=== PATIENT | male | born 1960 | race Caucasian/White ===

== ENCOUNTER 2022-08-15 22:27 | Inpatient (IN) | payer MEDICAID ==
[~2022-08-15] VITALS: Ht 172.7 cm; Wt 70.9 kg
[2022-08-16] MEDS ORDERED: NITROGLYCERIN 0.4MG TABLET SL SL PRN
[2022-08-16] MEDS ORDERED: ASPIRIN 81MG TABLET PO ONE
[2022-08-16 01:33] LABS: BASOPHILS % 0.6 % (0.0-2.0); EOSINOPHILS % 1.3 % (0.0-5.0); HEMATOCRIT. 38.5 % (42.0-52.0); HEMOGLOBIN. 13.2 g/dL (14.0-18.0); LYMPHOCYTES % 26.8 % (20.0-50.0); MEAN CORPUSCULAR HEMOGLOBIN 31.5 pg (28.0-32.0); MEAN CORPUSCULAR VOLUME 91.9 fL (80.0-94.0); MONOCYTES % 10.4 % (2.0-8.0); NEUTROPHILS % 60.9 % (40.0-76.0); PLATELET 237 x1000/uL (130-400); RED BLOOD CELL COUNT 4.19 mill/uL (4.7-6.1); RED CELL DISTRIBUTION WIDTH 13.5 % (11.6-14.6)
[2022-08-16 04:26] LABS: CHLORIDE 102 mEq/L (98-107)
[2022-08-16] MEDS ORDERED: ACETAMINOPHEN 325MG TABLET PO PRN (20:45)
[2022-08-16] MEDS ORDERED: ONDANSETRON HCL 4MG/2ML INJ IV PRN (20:45)
[2022-08-16] MEDS ORDERED: CLONIDINE 0.1MG TABLET PO PRN (20:45)
[2022-08-16] MEDS ORDERED: MELO-106 PO (23:44)
[2022-08-16] MEDS ORDERED: ASPI-1406 PO (23:44)
[2022-08-16] MEDS ORDERED: DEXL60CA3 PO (23:44)
[2022-08-16] MEDS ORDERED: SIMV-43 PO (23:44)
[2022-08-16] MEDS ORDERED: RISP3TAB62 PO (23:44)
[2022-08-16] MEDS ORDERED: DIVA-75 PO (23:44)
[2022-08-16] MEDS ORDERED: BENZ1TAB7 MT (23:44)
[2022-08-16] MEDS ORDERED: MIDO10TA PO (23:44)
[2022-08-16] MEDS ORDERED: FINA1TAB18 PO (23:44)
[2022-08-16] MEDS ORDERED: DOCU-138 PO (23:44)
[2022-08-17 01:02] VITALS: BP 136/73
[2022-08-17 04:00] VITALS: BP 128/66
[2022-08-17 04:32] LABS: CREATINE KINASE MB FRACTION 1.7 ng/mL (0.5-3.6)
[2022-08-17 07:04] LABS: BASOPHILS % 0.8 % (0.0-2.0); EOSINOPHILS % 1.8 % (0.0-5.0); HEMATOCRIT. 41.6 % (42.0-52.0); LYMPHOCYTES % 37.4 % (20.0-50.0); MEAN CORPUSCULAR VOLUME 92.1 fL (80.0-94.0); MEAN PLATELET VOLUME 8.9 fl (7.4-10.4); PLATELET 232 x1000/uL (130-400); RED BLOOD CELL COUNT 4.52 mill/uL (4.7-6.1); RED CELL DISTRIBUTION WIDTH 13.3 % (11.6-14.6)
[2022-08-17 08:00] VITALS: BP 123/59
[2022-08-17] MEDS ORDERED: ENOXAPARIN 40MG/0.4ML SYR SUBCUT SCH (09:00)
[2022-08-17 09:07] LABS: CHLORIDE 105 mEq/L (98-107)
[2022-08-17 09:16] LABS: CREATINE KINASE 76 IU/L (39-308); CREATINE KINASE MB FRACTION 1.9 ng/mL (0.5-3.6)
[2022-08-17 12:00] VITALS: BP 103/67
[2022-08-17 16:00] VITALS: BP 113/62
[2022-08-17 17:02] VITALS: BP 113/62
[2022-08-17] MEDS ORDERED: ATORVASTATIN CALCIUM 40MG TABLET PO SCH (21:00)
== END 2022-08-17 21:50 | DRG 203 ==
LOC: ER 22:27 → 8WST 08-16 06:35
PROVIDERS: ADMIT Internal Medicine; ATTEND Internal Medicine
DX: M94.0 Chondrocostal junction syndrome [Tietze] (principal); C79.9 Secondary malignant neoplasm of unspecified site; I11.0 Hypertensive heart disease with heart failure; C34.90 Malignant neoplasm of unspecified part of unspecified bronchus or lung; I50.9 Heart failure, unspecified; Z20.822 Contact with and (suspected) exposure to COVID-19; E78.5 Hyperlipidemia, unspecified; F20.9 Schizophrenia, unspecified; N40.0 Benign prostatic hyperplasia without lower urinary tract symptoms; G40.909 Epilepsy, unspecified, not intractable, without status epilepticus; Z66 Do not resuscitate; F31.9 Bipolar disorder, unspecified; J44.9 Chronic obstructive pulmonary disease, unspecified; Z79.1 Long term (current) use of non-steroidal anti-inflammatories (NSAID); Z79.82 Long term (current) use of aspirin; Z79.899 Other long term (current) drug therapy; Z85.118 Personal history of other malignant neoplasm of bronchus and lung
CPT/HCPCS: 36415; 71045; 71250; 74176; 80048; 80053; 82550; 82553; 84484; 85025; 85379; 87426; 93005; 99285; J1650

== ENCOUNTER 2023-06-23 01:41 | Inpatient (IN) | payer SELFPAY ==
[~2023-06-23] VITALS: Ht 162.6 cm; Wt 59.0 kg
[~2023-06-23 01:41] MED LIST: ASPI-1406 PO; BENZ1TAB78 MT; DEXL60CA3 PO; DIVA-75 PO; DOCU-138 PO; FINA1TAB18 PO; MELO-106 PO; MIDO10TA PO; RISP3TAB62 PO; SIMV-43 PO
[2023-06-23] MEDS ORDERED: LORAZEPAM 2MG/ML CPJ IV STA (01:58)
[2023-06-23 03:06] LABS: CHLORIDE 105 mEq/L (98-107); INDEX HEMOLYSI 1 (1-3); INDEX ICTERIC 1 (1-4); INDEX LIPEMIC 1 (1-3); POTASSIUM 4.2 mEq/L (3.5-5.1); SODIUM 139 mEq/L (136-145)
[2023-06-23 03:12] LABS: ACETAMINOPHEN <2 ug/mL ug/mL (10-30); ALANINE AMINOTRANSFERASE 21 IU/L (13-61); ALBUMIN 3.5 g/dL (3.4-5.0); ASPARTATE AMINOTRANSFERASE 12 IU/L (15-37); BILIRUBIN TOTAL 0.3 mg/dL (0.1-1.0); CALCIUM 9.2 mg/dL (8.5-10.1); CARBON DIOXIDE 32 mEq/L (21-32); CREATININE 0.7 mg/dL (0.6-1.3); ETHANOL BLOOD < 10 mg/dL (<10); GLUCOSE 100 mg/dL (70-105); PROTEIN TOTAL 7.6 g/dL (6.0-8.3); UREA NITROGEN BLOOD 19 mg/dL (7-21)
[2023-06-23 03:30] LABS: BASOPHILS % 0.8 % (0.0-2.0); HEMATOCRIT. 42.6 % (42.0-52.0); HEMOGLOBIN. 14.2 g/dL (14.0-18.0); MEAN CORPUSCULAR HEMOGLOBIN 29.9 pg (28.0-32.0); MEAN CORPUSCULAR HGB CONC 33.3 g/dL (31.0-37.0); MEAN CORPUSCULAR VOLUME 89.9 fL (80.0-94.0); MONOCYTES % 8.2 % (2.0-8.0); RED BLOOD CELL COUNT 4.74 mill/uL (4.7-6.1); RED CELL DISTRIBUTION WIDTH 13.8 % (11.6-14.6); WHITE BLOOD COUNT 10.2 x1000/uL (4.5-11.0)
[2023-06-23 03:35] LABS: DIFFERENTIAL COMMENT 1
[2023-06-23 05:10] LABS: MEAN PLATELET VOLUME 9.1 fl (7.4-10.4); PLATELET 222 x1000/uL (130-400)
[2023-06-23] MEDS ORDERED: ACETAMINOPHEN 325MG TABLET PO PRN (09:45)
[2023-06-23] MEDS ORDERED: LORAZEPAM 2MG/ML CPJ IV PRN (09:45)
[2023-06-23] MEDS ORDERED: TAMSULOSIN HCL 0.4MG SR CAPSULE PO SCH (09:45)
[2023-06-23] MEDS ORDERED: ONDANSETRON HCL 4MG/2ML INJ IV PRN (09:45)
[2023-06-23] MEDS ORDERED: IPRATROPIUM/ALBUTEROL 0.5-3(2.5)MG/3ML NEB HHN PRN (09:45)
[2023-06-23] MEDS ORDERED: HYOS-14 PO (10:01)
[2023-06-23] MEDS ORDERED: ASCO500C18 PO (10:01)
[2023-06-23] MEDS ORDERED: MOM MT (10:01)
[2023-06-23] MEDS ORDERED: BISA10SU62 RC (10:01)
[2023-06-23] MEDS ORDERED: CLON-493 PO (10:01)
[2023-06-23] MEDS ORDERED: SUCR1TAB PO (10:01)
[2023-06-23] MEDS ORDERED: NITR0.4T49 SL (10:01)
[2023-06-23] MEDS ORDERED: TAMS-11 PO (10:01)
[2023-06-23 10:03] VITALS: BP 122/69; PULSE 75; RESP 18; TEMP 98.1
[2023-06-23 10:04] VITALS: BP 122/69; PULSE 75; RESP 18; TEMP 98.1
[2023-06-23 12:00] VITALS: BP 116/79; PULSE 78; RESP 20; TEMP 97.7
[2023-06-23 16:00] VITALS: BP 115/78; PULSE 81; RESP 20; TEMP 97.9
[2023-06-23] MEDS ORDERED: CLON0.1T PO (18:42)
[2023-06-23] MEDS ORDERED: SIMV-43 PO (18:42)
[2023-06-23] MEDS ORDERED: RISP2TAB85 PO (18:42)
[2023-06-23] MEDS ORDERED: NITR0.4T SL (18:42)
[2023-06-23] MEDS ORDERED: HYDR-4001 PO (18:42)
[2023-06-23] MEDS ORDERED: MELO-106 PO (18:43)
[2023-06-23] MEDS ORDERED: FINA5TAB11 PO (18:44)
[2023-06-23 19:06] VITALS: BP 115/78; PULSE 81; TEMP 97.9; O2SAT 97
[2023-06-23] MEDS ORDERED: ASPI-1497 PO (19:21)
[2023-06-23] MEDS ORDERED: DEXL60CA6 PO (19:23)
[2023-06-23] MEDS ORDERED: MIDO10TA PO (19:24)
[2023-06-23] MEDS ORDERED: LORA2ORA PO (19:25)
[2023-06-23] MEDS ORDERED: HYOS-28 PO (19:25)
== END 2023-06-23 20:43 | DRG 52 ==
LOC: ER 01:41 → MICUSO 06:01 → 7WST 09:10
PROVIDERS: ADMIT Internal Medicine; ATTEND Internal Medicine
DX: G93.41 Metabolic encephalopathy (principal); F20.9 Schizophrenia, unspecified; F31.9 Bipolar disorder, unspecified; I10 Essential (primary) hypertension; J44.9 Chronic obstructive pulmonary disease, unspecified; Z79.899 Other long term (current) drug therapy
CPT/HCPCS: 36415; 71045; 80053; 80307; 80320; 80329; 85025; 99285; J2060; G0480

== ENCOUNTER 2023-07-18 20:53 | Inpatient (IN) | payer SELFPAY ==
[~2023-07-18] VITALS: Ht 180.3 cm; Wt 60.0 kg
[~2023-07-18 20:53] MED LIST changes: +ASCO500C18 PO; -ASPI-1406 PO; +ASPI-1497 PO; +BISA10SU62 RC; +CLON0.1T PO; -DEXL60CA3 PO; +DEXL60CA6 PO; -DOCU-138 PO; -FINA1TAB18 PO; +FINA5TAB11 PO; +HYDR-4001 PO; +HYOS-14 PO; +LORA2ORA PO; +MOM MT; +NITR0.4T SL; +RISP2TAB85 PO; -RISP3TAB62 PO; +SUCR1TAB PO; +TAMS-11 PO
[2023-07-18 21:01] VITALS: O2SAT 98
[2023-07-18 22:03] LABS: EOSINOPHILS % 2.4 % (0.0-5.0); HEMATOCRIT. 40.1 % (42.0-52.0); HEMOGLOBIN. 13.5 g/dL (14.0-18.0); LYMPHOCYTES % 31.2 % (20.0-50.0); MEAN CORPUSCULAR HEMOGLOBIN 30.4 pg (28.0-32.0); MEAN CORPUSCULAR HGB CONC 33.8 g/dL (31.0-37.0); MEAN CORPUSCULAR VOLUME 89.9 fL (80.0-94.0); MEAN PLATELET VOLUME 8.6 fl (7.4-10.4); MONOCYTES % 8.7 % (2.0-8.0); NEUTROPHILS % 56.7 % (40.0-76.0); PLATELET 240 x1000/uL (130-400); RED BLOOD CELL COUNT 4.46 mill/uL (4.7-6.1); RED CELL DISTRIBUTION WIDTH 13.6 % (11.6-14.6); WHITE BLOOD COUNT 9.6 x1000/uL (4.5-11.0)
[2023-07-18 22:15] LABS: CHLORIDE 104 mEq/L (98-107); INDEX HEMOLYSI 1 (1-3); INDEX ICTERIC 1 (1-4); INDEX LIPEMIC 1 (1-3); POTASSIUM 3.4 mEq/L (3.5-5.1); SODIUM 140 mEq/L (136-145)
[2023-07-18 22:24] LABS: ALANINE AMINOTRANSFERASE 23 IU/L (13-61); ALBUMIN 3.4 g/dL (3.4-5.0); ASPARTATE AMINOTRANSFERASE 12 IU/L (15-37); BILIRUBIN TOTAL 0.2 mg/dL (0.1-1.0); CALCIUM 8.9 mg/dL (8.5-10.1); CARBON DIOXIDE 30 mEq/L (21-32); CREATININE 0.6 mg/dL (0.6-1.3); ETHANOL BLOOD < 10 mg/dL (<10); GLUCOSE 131 mg/dL (70-105); NT PRO B-TYPE NATRIURETIC PEP 144 pg/mL (5-125); TROPONIN I HIGH SENSITIVITY 7 ng/L (<78); UREA NITROGEN BLOOD 22 mg/dL (7-21)
[2023-07-18] MEDS ORDERED: ALBUTEROL (0.5%) 2.5MG/0.5ML NEB HHN ONE (22:30)
[2023-07-18 23:03] VITALS: PULSE 48; RESP 16
[2023-07-18] MEDS ORDERED: ASPIRIN 325MG EC TABLET PO NR (23:15)
[2023-07-19] VITALS: BP 159/82; PULSE 52; RESP 17; TEMP 98.2
[2023-07-19 00:57] LABS: TROPONIN I HIGH SENSITIVITY 7 ng/L (<78)
[2023-07-19] MEDS ORDERED: ISOSORBIDE MONONITRATE 60MG TABLET SR 24HR PO SCH (01:15)
[2023-07-19] MEDS ORDERED: POTASSIUM CHLORIDE INJ 40 MEQ in DEXT 5% WATER 250 ML IV ONE (01:15)
[2023-07-19] MEDS ORDERED: HYDROCODONE/ACETAMINOPHEN 5/325MG TABLET PO PRN (01:15)
[2023-07-19 01:33] LABS: *AMPHETAMINES SCREEN URINE NEGATIVE (NEGATIVE); *BARBITURATES SCREEN URINE NEGATIVE (NEGATIVE); *BENZODIAZEPINES SCREEN URINE NEGATIVE (NEGATIVE); *COCAINE SCREEN URINE NEGATIVE (NEGATIVE); CANNABINOID URINE SCREEN NEGATIVE (NEGATIVE); ECSTASY MDMA SCREEN URINE NEGATIVE (NEGATIVE); OPIATES URINE SCREEN NEGATIVE (NEGATIVE); PHENCYCLIDINE URINE SCREEN NEGATIVE (NEGATIVE)
[2023-07-19 02:01] VITALS: BP 159/65; PULSE 55; RESP 18; TEMP 98.2
[2023-07-19] MEDS: KCL 20MEQ/100ML X 2 FOR TOTAL KCL 40MEQ/200ML IV SCH ×2 (03:00→05:00)
[2023-07-19] MEDS ORDERED: ENOXAPARIN 40MG/0.4ML SYR SUBCUT SCH (09:00)
[2023-07-19] MEDS ORDERED: METOPROLOL TARTRATE 25MG TABLET PO SCH (09:00)
[2023-07-19] MEDS ORDERED: LEVETIRACETAM 500MG TABLET PO SCH (09:00)
[2023-07-19] MEDS ORDERED: ASPIRIN 81MG TABLET PO SCH (09:00)
[2023-07-19] MEDS ORDERED: ATORVASTATIN CALCIUM 40MG TABLET PO SCH (21:00)
== END 2023-07-19 09:45 | disposition left against medical advice (07) | DRG 203 ==
LOC: ER 20:53 → MICUSO 23:12 → 3WST 23:58
PROVIDERS: ADMIT Internal Medicine; ATTEND Internal Medicine
DX: R07.89 Other chest pain (principal); I13.0 Hypertensive heart and chronic kidney disease with heart failure and stage 1 through stage 4 chronic kidney disease, or unspecified chronic kidney disease; I50.9 Heart failure, unspecified; E78.00 Pure hypercholesterolemia, unspecified; G40.909 Epilepsy, unspecified, not intractable, without status epilepticus; Z53.29 Procedure and treatment not carried out because of patient's decision for other reasons; N18.9 Chronic kidney disease, unspecified; N40.0 Benign prostatic hyperplasia without lower urinary tract symptoms; F20.9 Schizophrenia, unspecified; F17.200 Nicotine dependence, unspecified, uncomplicated; Z85.118 Personal history of other malignant neoplasm of bronchus and lung; Z79.899 Other long term (current) drug therapy
CPT/HCPCS: 36415; 71045; 80053; 80305; 80320; 83880; 84484; 85025; 93005; 94640; 99285; J3480; G0480

== ENCOUNTER 2023-07-19 17:25 | Emergency (ER) | payer SELFPAY ==
[~2023-07-19] VITALS: Ht 172.7 cm; Wt 63.0 kg
[2023-07-19 17:54] VITALS: O2SAT 99
[2023-07-19 21:48] LABS: CHLORIDE 103 mEq/L (98-107); INDEX HEMOLYSI 1 (1-3); INDEX ICTERIC 1 (1-4); INDEX LIPEMIC 1 (1-3); POTASSIUM 3.9 mEq/L (3.5-5.1); SODIUM 137 mEq/L (136-145)
[2023-07-19 21:51] LABS: BASOPHILS % 0.8 % (0.0-2.0); EOSINOPHILS % 0.6 % (0.0-5.0); HEMATOCRIT. 44.6 % (42.0-52.0); HEMOGLOBIN. 14.9 g/dL (14.0-18.0); LYMPHOCYTES % 25.7 % (20.0-50.0); MEAN CORPUSCULAR HEMOGLOBIN 30.2 pg (28.0-32.0); MEAN CORPUSCULAR HGB CONC 33.4 g/dL (31.0-37.0); MEAN CORPUSCULAR VOLUME 90.4 fL (80.0-94.0); MEAN PLATELET VOLUME 8.7 fl (7.4-10.4); MONOCYTES % 7.6 % (2.0-8.0); NEUTROPHILS % 65.3 % (40.0-76.0); PLATELET 275 x1000/uL (130-400); RED BLOOD CELL COUNT 4.93 mill/uL (4.7-6.1); RED CELL DISTRIBUTION WIDTH 14.2 % (11.6-14.6); WHITE BLOOD COUNT 10.7 x1000/uL (4.5-11.0)
[2023-07-19 22:00] LABS: ALANINE AMINOTRANSFERASE 27 IU/L (13-61); ALBUMIN 4.3 g/dL (3.4-5.0); ASPARTATE AMINOTRANSFERASE 12 IU/L (15-37); BILIRUBIN TOTAL 0.7 mg/dL (0.1-1.0); CALCIUM 9.8 mg/dL (8.5-10.1); CARBON DIOXIDE 31 mEq/L (21-32); CREATININE 0.6 mg/dL (0.6-1.3); GLUCOSE 107 mg/dL (70-105); NT PRO B-TYPE NATRIURETIC PEP 161 pg/mL (5-125); PROTEIN TOTAL 8.4 g/dL (6.0-8.3); TROPONIN I HIGH SENSITIVITY 8 ng/L (<78); UREA NITROGEN BLOOD 20 mg/dL (7-21)
[2023-07-19 23:37] VITALS: BP 130/70; PULSE 78; RESP 18; TEMP 98.4
[2023-07-19 23:38] LABS: TROPONIN I HIGH SENSITIVITY 8 ng/L (<78)
== END 2023-07-19 23:30 | disposition home or self-care (01) ==
LOC: ER 17:25
DX: R00.2 Palpitations (principal); F31.9 Bipolar disorder, unspecified; E78.00 Pure hypercholesterolemia, unspecified; I10 Essential (primary) hypertension; F20.9 Schizophrenia, unspecified; F12.10 Cannabis abuse, uncomplicated; Z79.899 Other long term (current) drug therapy
CPT/HCPCS: 36415; 71045; 80053; 83880; 84484; 85025; 93005; 99285

== ENCOUNTER 2023-07-20 09:48 | Inpatient (IN) | payer SELFPAY ==
[~2023-07-20] VITALS: Ht 170.2 cm; Wt 59.4 kg
[2023-07-20 04:00] VITALS: BP 140/75; PULSE 70; RESP 18; TEMP 97.6
[2023-07-20] MEDS: BUDESONIDE 0.5MG/2ML NEB HHN SCH (08:00)
[2023-07-20 10:48] LABS: BASOPHILS % 0.3 % (0.0-2.0); HEMATOCRIT. 43.2 % (42.0-52.0); HEMOGLOBIN. 14.3 g/dL (14.0-18.0); LYMPHOCYTES % 12.2 % (20.0-50.0); MEAN CORPUSCULAR VOLUME 90.9 fL (80.0-94.0); MEAN PLATELET VOLUME 8.3 fl (7.4-10.4); MONOCYTES % 7.1 % (2.0-8.0); NEUTROPHILS % 80.4 % (40.0-76.0); PLATELET 257 x1000/uL (130-400); RED BLOOD CELL COUNT 4.76 mill/uL (4.7-6.1); RED CELL DISTRIBUTION WIDTH 13.8 % (11.6-14.6); WHITE BLOOD COUNT 10.8 x1000/uL (4.5-11.0)
[2023-07-20 11:04] LABS: CHLORIDE 105 mEq/L (98-107); INDEX HEMOLYSI 1 (1-3); INDEX ICTERIC 1 (1-4); INDEX LIPEMIC 1 (1-3); POTASSIUM 3.8 mEq/L (3.5-5.1); SODIUM 138 mEq/L (136-145)
[2023-07-20 11:13] LABS: ALANINE AMINOTRANSFERASE 24 IU/L (13-61); ALBUMIN 4.2 g/dL (3.4-5.0); ASPARTATE AMINOTRANSFERASE 17 IU/L (15-37); BILIRUBIN TOTAL 0.7 mg/dL (0.1-1.0); CALCIUM 9.2 mg/dL (8.5-10.1); CARBON DIOXIDE 30 mEq/L (21-32); CREATININE 0.5 mg/dL (0.6-1.3); GLUCOSE 106 mg/dL (70-105); NT PRO B-TYPE NATRIURETIC PEP 132 pg/mL (5-125); TROPONIN I HIGH SENSITIVITY 10 ng/L (<78); UREA NITROGEN BLOOD 24 mg/dL (7-21)
[2023-07-20 14:30] VITALS: BP 114/61; PULSE 63; RESP 16; TEMP 98.1
[2023-07-20 16:00] VITALS: BP 140/75; PULSE 70; RESP 18; TEMP 97.6
[2023-07-20 17:33] VITALS: BP 114/61; PULSE 63; RESP 16; TEMP 98.1
[2023-07-20 20:00] VITALS: BP 164/68; PULSE 71; RESP 20; RESP 21; TEMP 97.1
[2023-07-20] MEDS ORDERED: PNEUMOCOCCAL 23-VAL P-SAC VAC 0.5 ML IM ONE (20:45)
[2023-07-20] MEDS ORDERED: HYDROCODONE/ACETAMINOPHEN 5/325MG TABLET PO PRN (22:30)
[2023-07-20] MEDS ORDERED: CLONIDINE 0.1MG TABLET PO PRN (22:30)
[2023-07-21] VITALS (7 sets, daily range): BP systolic 117–134; BP diastolic 57–76; PULSE 65–72; RESP 16–20; TEMP 96.7–98.2; O2SAT 97
[2023-07-21 07:07] LABS: CHLORIDE 113 mEq/L (98-107); INDEX HEMOLYSI 1 (1-3); INDEX ICTERIC 1 (1-4); INDEX LIPEMIC 1 (1-3); SODIUM 143 mEq/L (136-145)
[2023-07-21 07:09] LABS: BASOPHILS % 0.7 % (0.0-2.0); EOSINOPHILS % 1.4 % (0.0-5.0); HEMATOCRIT. 41.4 % (42.0-52.0); HEMOGLOBIN. 14.1 g/dL (14.0-18.0); LYMPHOCYTES % 27.4 % (20.0-50.0); MEAN CORPUSCULAR HEMOGLOBIN 30.7 pg (28.0-32.0); MEAN CORPUSCULAR HGB CONC 34.2 g/dL (31.0-37.0); MEAN CORPUSCULAR VOLUME 89.9 fL (80.0-94.0); MONOCYTES % 11.1 % (2.0-8.0); NEUTROPHILS % 59.4 % (40.0-76.0); PLATELET 247 x1000/uL (130-400); RED CELL DISTRIBUTION WIDTH 13.7 % (11.6-14.6); WHITE BLOOD COUNT 8.5 x1000/uL (4.5-11.0)
[2023-07-21] MEDS ORDERED: NALOXONE HCL 0.4MG/ML VIAL IV PRN (07:15)
[2023-07-21 07:21] LABS: CARBON DIOXIDE 28 mEq/L (21-32); CHOLESTEROL 130 mg/dL (<200); CREATININE 0.5 mg/dL (0.6-1.3); GLUCOSE 112 mg/dL (70-105); HDL CHOLESTEROL 54 mg/dL (40-59); LDL CHOLESTEROL 72 mg/dL (5-100); TRIGLYCERIDE 41 mg/dL (0-150); TROPONIN I HIGH SENSITIVITY 9 ng/L (<78); UREA NITROGEN BLOOD 26 mg/dL (7-21)
[2023-07-21] MEDS: FINASTERIDE 5MG TABLET PO SCH (09:33)
[2023-07-21] MEDS: ASPIRIN 81MG EC TABLET PO SCH (09:33)
[2023-07-21] MEDS: AMLODIPINE 2.5MG TABLET PO SCH (09:33)
[2023-07-21] MEDS: ENOXAPARIN 40MG/0.4ML SYR SUBCUT SCH (09:34)
[2023-07-21] MEDS: BUDESONIDE 0.5MG/2ML NEB HHN SCH (18:00)
[2023-07-21] MEDS: IPRATROPIUM/ALBUTEROL 0.5-3(2.5)MG/3ML NEB HHN PRN (20:43)
[2023-07-21] MEDS ORDERED: ATORVASTATIN CALCIUM 10MG TABLET PO SCH (21:00)
[2023-07-22] VITALS: BP 117/60; PULSE 62; RESP 16; TEMP 96.9
[2023-07-22 04:00] VITALS: BP 133/63; PULSE 68; RESP 16; TEMP 97.1
[2023-07-22 07:53] LABS: BASOPHILS % 0.7 % (0.0-2.0); EOSINOPHILS % 1.9 % (0.0-5.0); HEMATOCRIT. 41.3 % (42.0-52.0); HEMOGLOBIN. 14.1 g/dL (14.0-18.0); LYMPHOCYTES % 27.6 % (20.0-50.0); MEAN CORPUSCULAR HEMOGLOBIN 30.6 pg (28.0-32.0); MEAN PLATELET VOLUME 9.2 fl (7.4-10.4); NEUTROPHILS % 57.8 % (40.0-76.0); PLATELET 233 x1000/uL (130-400); RED BLOOD CELL COUNT 4.59 mill/uL (4.7-6.1); RED CELL DISTRIBUTION WIDTH 14.1 % (11.6-14.6); WHITE BLOOD COUNT 7.1 x1000/uL (4.5-11.0)
[2023-07-22 08:00] VITALS: BP 102/65; PULSE 57; RESP 17; TEMP 98.1
[2023-07-22] MEDS: AMLODIPINE 2.5MG TABLET PO SCH (08:58)
[2023-07-22 09:31] LABS: CALCIUM 8.8 mg/dL (8.5-10.1); CARBON DIOXIDE 32 mEq/L (21-32); CHLORIDE 103 mEq/L (98-107); GLUCOSE 86 mg/dL (70-105); INDEX HEMOLYSI 1 (1-3); INDEX ICTERIC 1 (1-4); INDEX LIPEMIC 1 (1-3); SODIUM 138 mEq/L (136-145)
[2023-07-22 09:41] LABS: CREATININE 0.6 mg/dL (0.6-1.3); UREA NITROGEN BLOOD 13 mg/dL (7-21)
[2023-07-22] MEDS: IPRATROPIUM/ALBUTEROL 0.5-3(2.5)MG/3ML NEB HHN PRN (09:42)
[2023-07-22 09:43] VITALS: PULSE 75; RESP 18; O2SAT 99
[2023-07-22] MEDS: BUDESONIDE 0.5MG/2ML NEB HHN SCH (09:43)
[2023-07-22] MEDS: FINASTERIDE 5MG TABLET PO SCH (09:54)
[2023-07-22] MEDS: ASPIRIN 81MG EC TABLET PO SCH (09:54)
[2023-07-22] MEDS: ENOXAPARIN 40MG/0.4ML SYR SUBCUT SCH (09:54)
[2023-07-22 12:00] VITALS: BP 114/89; PULSE 60; RESP 18; TEMP 98.1
[2023-07-22 12:18] VITALS: BP 102/65; PULSE 57; TEMP 98.1; O2SAT 100
[2023-07-22 15:31] LABS: HEPATITIS B SURFACE ANTIGEN NEGATIVE (Negative)
== END 2023-07-22 15:22 | DRG 203 ==
LOC: ER 09:48 → EDBEDREQ 10:51 → 7WST 13:03 → EDBEDREQ 13:05 → EDBEDREQTM 13:05
PROVIDERS: ADMIT Internal Medicine; ATTEND Internal Medicine
DX: R07.89 Other chest pain (principal); G93.40 Encephalopathy, unspecified; I13.0 Hypertensive heart and chronic kidney disease with heart failure and stage 1 through stage 4 chronic kidney disease, or unspecified chronic kidney disease; I50.9 Heart failure, unspecified; F20.9 Schizophrenia, unspecified; G40.909 Epilepsy, unspecified, not intractable, without status epilepticus; N40.0 Benign prostatic hyperplasia without lower urinary tract symptoms; N18.9 Chronic kidney disease, unspecified; F31.9 Bipolar disorder, unspecified; J44.89 Other specified chronic obstructive pulmonary disease; E78.00 Pure hypercholesterolemia, unspecified; Z79.82 Long term (current) use of aspirin; Z79.899 Other long term (current) drug therapy; Z85.118 Personal history of other malignant neoplasm of bronchus and lung; Z87.891 Personal history of nicotine dependence; Z82.3 Family history of stroke
CPT/HCPCS: 36415; 71045; 80048; 80053; 80061; 83735; 83880; 84484; 85025; 86705; 87340; 93005; 93306; 94640; 99285; J1650; J7626